=== PATIENT | male | born 1975 | race Caucasian/White ===

== ENCOUNTER → 2023-11-23 14:45 | Outpatient (REF) | payer BC, SELFPAY | LOC: DHCBS MAIN 14:45 | PROVIDERS: ATTENDING PHYSICIAN Internal Medicine Cardiovascular Disease | DX: I48.91 Unspecified atrial fibrillation (principal) | CPT/HCPCS: 93306 ==

== ENCOUNTER 2023-12-16 06:21 | Day surgery (SDC) | payer BC, SELFPAY ==
[2023-12-12 08:29] VITALS: BMI 26.7
[2023-12-12 08:51] LABS: % Basophils 0.9 % (0-2); % Eosinophils 3.1 % (0-6); % Immature Granulocytes 0.6 % (0-0.5); % Lymphocytes 29.7 % (20.5-51.1); % Monocytes 7.7 % (1.7-9.3); Absolute Basophils 0.1 10^3/uL (0-0.2); Absolute Eosinophils 0.2 10^3/uL (0-0.7); Absolute Monocytes 0.5 10^3/uL (0.1-0.6); Absolute Neutrophils 3.9 10^3/uL (1.4-6.5); Hematocrit 42.8 % (39.0-52.0); Hemoglobin 14.6 g/dL (13.0-18.0); Mean Corp Hgb Conc. 34.1 g/dL (33.0-37.0); Mean Corpuscular Hgb 31.7 pg (27.0-31.0); Mean Platelet Volume 9.9 fL (7.4-10.4); Nucleated Red Blood Cells % 0 % (-); Platelet Count 241 10^3/uL (130-400); Red Cell Dist. Width 11.6 % (11.5-14.5); White Blood Cell Count 6.8 10^3/uL (4.8-10.8)
[2023-12-12 09:06] LABS: INR 0.98; PT 12.8 Sec (11.4-14.6)
[2023-12-12 09:36] LABS: ALT (SGPT) 28 U/L (0-50); AST (SGOT) 29 U/L (17-59); Albumin 4.5 g/dl (3.5-5.0); Alkaline Phosphatase 91 U/L (38-126); Blood Urea Nitrogen 22 mg/dl (9-20); Calcium 9.9 mg/dl (8.4-10.2); Carbon Dioxide 31 mmol/L (22-30); Chloride 100 mmol/L (98-107); Estimated Creatinine Clearance 89 ml/min; Glucose 101 mg/dl (70-99); Potassium 4.4 mmol/L (3.5-5.1); Sodium 138 mmol/L (135-145); Total Bilirubin 0.7 mg/dl (0.2-1.3); Total Protein 7.6 g/dl (6.3-8.2); eGFR > 60.00
[2023-12-16] VITALS (7 sets, daily range): BP systolic 84–121; BP diastolic 45–77
[2023-12-16] MEDS: LOW STRENGTH ASPIRIN 324 MG PO (07:59)
--- NOTE | 2023-12-16 09:17 | ITS.CL.CATH ---
[employer] - Catheterization
Cardiac Catheterization
Procedure Report:
LEFT HEART CATHETERIZATION
Date of Procedure: December 16, 2023
Referring: Dr. Néstor Scott
PROCEDURES:
1. Left heart catheterization with coronary and single-plane left ventriculography
INDICATION: Atrial fibrillation with newly diagnosed LV dysfunction
ACCESS: Right radial artery, 6 Irish sheath
HEMODYNAMICS : (mmHg)
AO (s/d) : 99/74, 84
LV (s/d) : 99/12
LVEDP : 18
CORONARY FINDINGS
DOMINANCE: Right
LEFT MAIN: Normal
LEFT ANTERIOR DESCENDING: The LAD arises normally from the left main and runs in the anterior interventricular groove. The LAD is widely patent. 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
CIRCUMFLEX: The circumflex is a large and gives rise to a single sizable obtuse marginal branch that trifurcates distally
RIGHT CORONARY ARTERY: The right coronary artery is a dominant vessel that is widely patent over its course. The PDA and posterolateral branch are also noted to be widely
VENTRICULOGRAPHY: Left ventriculography was performed in ROCHA projection. The left ventricle is noted to be dilated and globally hypokinetic with a visually estimated ejection fraction of 25-30%
RADIATION SUMMARY: Fluoro Time (min): 2.2, Dose (mGy): 153, DAP (Gy.cm2) : 12.3
Closure Device: TR band
CONCLUSIONS
1. Normal coronary arteries
2. Dilated cardiomyopathy with visually estimated ejection fraction of 25-30%
RECOMMENDATIONS
1. Will add 25 mg Toprol XL in the evenings and will add low dose lisinopril vs Entresto
Copy to: Dr. Néstor Scott
--- NOTE | 2023-12-16 10:08 | CM ---
Recfeived consult to check co-apy for Entresto mcg bid. Telephone call to [employer], ([phone]) to check co-pay. His plan he pays 20 % of the cost of all medications. So for one month the cost would be $132.79 and for 90 day supply
it would be $362.36, He has commercial insurance so he can use the $10.00 co-pay card.
== END 2023-12-16 12:02 | disposition home or self-care (01) ==
LOC: CATH 06:21
PROVIDERS: ATTENDING PHYSICIAN Internal Medicine Interventional Cardiology; OTHER PHYSICIAN Internal Medicine Cardiovascular Disease
DX: I48.0 Paroxysmal atrial fibrillation (principal); I47.10 Supraventricular tachycardia, unspecified; I42.0 Dilated cardiomyopathy; Z79.01 Long term (current) use of anticoagulants; Z82.49 Family history of ischemic heart disease and other diseases of the circulatory system
CPT/HCPCS: 36415; 80053; 85025; 85610; 93005; 93458; C1894; Q9967

== ENCOUNTER 2024-01-20 06:56 | Day surgery (SDC) | payer BC, SELFPAY ==
[2024-01-20] MEDS: PACERONE 400 MG PO (08:43)
[2024-01-20 09:26] VITALS: BMI 25.6
--- NOTE | 2024-01-20 09:52 | ITS.CL.CARDI ---
Climate Change Risk Assessor - Cardioversion
Cardioversion
Procedure Report:
Procedure: Direct current electrical cardioversion
Pre-operative diagnosis: Persistent atrial fibrillation
Post-operative diagnosis: Persistent atrial fibrillation status post DC cardioversion to sinus rhythm
Anesthesia: MAC
Attending Physician: Memo Bobo MD
Procedure Description: The patient was brought to the electrophysiology laboratory in the fasting state. Adherence to anticoagulation regimen was confirmed. Informed consent was obtained from the patient prior to the start of the procedure.
Electrodes were placed on the patient and connected to an external defibrillator. Monitoring of blood pressure, ECG tracings, and pulse oximetry was initiated. The pads were applied to the patient in the anterior and posterior positions. The patient
was sedated by the anesthesiologist. A 200 joule biphasic synchronized shock was delivered to the patient under MAC anesthesia. Sinus rhythm was successfully restored. The patient recovered uneventfully from MAC anesthesia. There were no immediate
post-procedure complications. The patient left the lab in good condition. The attending physician was present throughout the entire procedure.
Following cardioversion the patient with salvos of nonsustained VT. Discussed with electrophysiology, plan to initiate amiodarone and monitor patient here postprocedure. Close electrophysiology follow-up has already been arranged.
Impression: Successful direct current cardioversion with cheondoism of sinus rhythm after one 200 joule biphasic synchronized shock.
== END 2024-01-20 10:40 | disposition home or self-care (01) ==
LOC: CATH 06:56
PROVIDERS: ATTENDING PHYSICIAN Internal Medicine Cardiovascular Disease; FAMILY PHYSICIAN Physician Assistant Medical; OTHER PHYSICIAN Internal Medicine Cardiovascular Disease
DX: I48.19 Other persistent atrial fibrillation (principal); I47.10 Supraventricular tachycardia, unspecified; Z82.49 Family history of ischemic heart disease and other diseases of the circulatory system; Z79.01 Long term (current) use of anticoagulants
CPT/HCPCS: 92960; 93005

== ENCOUNTER → 2024-01-27 14:41 | Outpatient (REF) | payer BC, SELFPAY | LOC: RAD 14:41 | PROVIDERS: ATTENDING PHYSICIAN Internal Medicine Cardiovascular Disease; FAMILY PHYSICIAN Physician Assistant Medical | DX: I42.8 Other cardiomyopathies (principal) | CPT/HCPCS: 71046 ==

== ENCOUNTER → 2024-02-24 08:40 | Outpatient (REF) | payer BC, SELFPAY | LOC: MRI 08:40 | PROVIDERS: ATTENDING PHYSICIAN Internal Medicine Cardiovascular Disease; FAMILY PHYSICIAN Physician Assistant Medical | DX: I42.8 Other cardiomyopathies (principal) | CPT/HCPCS: 75561; 75565; A9585 ==

== ENCOUNTER → 2024-04-04 12:00 | Outpatient (REF) | payer BC, SELFPAY | LOC: DHSLP 12:00 | PROVIDERS: ATTENDING PHYSICIAN Internal Medicine Cardiovascular Disease; FAMILY PHYSICIAN Physician Assistant Medical | DX: G47.33 Obstructive sleep apnea (adult) (pediatric) (principal) | CPT/HCPCS: 95800 ==

== ENCOUNTER 2024-04-17 08:53 | Day surgery (SDC) | payer BC, SELFPAY ==
[2024-04-06 13:01] VITALS: BMI 26.2
[2024-04-06 13:32] LABS: % Basophils 0.9 % (0-2); % Eosinophils 1.9 % (0-6); % Immature Granulocytes 0.5 % (0-0.5); % Lymphocytes 27.3 % (20.5-51.1); % Monocytes 7.9 % (1.7-9.3); % Neutrophils 61.5 % (42.2-75.2); Absolute Basophils 0.1 10^3/uL (0-0.2); Absolute Eosinophils 0.1 10^3/uL (0-0.7); Absolute Lymphocytes 1.8 10^3/uL (1.2-3.4); Absolute Monocytes 0.5 10^3/uL (0.1-0.6); Mean Corp Hgb Conc. 35.7 g/dL (33.0-37.0); Mean Corpuscular Hgb 32.1 pg (27.0-31.0); Mean Corpuscular Volume 89.9 fL (80.0-94.0); Mean Platelet Volume 10.1 fL (7.4-10.4); Nucleated Red Blood Cells % 0 % (-); Platelet Count 221 10^3/uL (130-400); Red Blood Cell Count 4.67 10^6/uL (4.70-6.10); Red Cell Dist. Width 11.9 % (11.5-14.5); White Blood Cell Count 6.4 10^3/uL (4.8-10.8)
[2024-04-06 13:36] LABS: INR 1.15; PT 14.5 Sec (11.4-14.6)
[2024-04-06 13:48] LABS: ALT (SGPT) 157 U/L (0-50); AST (SGOT) 61 U/L (17-59); Albumin 4.8 g/dl (3.5-5.0); Alkaline Phosphatase 80 U/L (38-126); Blood Urea Nitrogen 25 mg/dl (9-20); Calcium 10.1 mg/dl (8.4-10.2); Carbon Dioxide 29 mmol/L (22-30); Chloride 100 mmol/L (98-107); Estimated Creatinine Clearance 75 ml/min; Glucose 97 mg/dl (70-99); Magnesium 2.1 mg/dl (1.6-2.3); Potassium 4.9 mmol/L (3.5-5.1); Sodium 134 mmol/L (135-145); Total Protein 7.8 g/dl (6.3-8.2); eGFR > 60.00
[2024-04-17] VITALS (11 sets, daily range): BP systolic 92–132; BP diastolic 46–86; BMI 26.2
[2024-04-17 11:49] LABS: ACT-LR - POC 216 Seconds (116-155)
[2024-04-17 12:01] LABS: ACT-LR - POC 368 Seconds (116-155)
[2024-04-17 12:17] LABS: ACT-LR - POC 397 Seconds (116-155)
[2024-04-17 13:23] LABS: ACT-LR - POC 203 Seconds (116-155)
--- NOTE | 2024-04-17 14:06 | ITS.CL.ABL ---
[employer]asting Supervisor - Ablation
Ablation
Procedure Report:
Primary Care: Rolando Ramirez PA-C
Procedure Date: 04/17/2024
Patient History:
Patient is a pleasant 49 year old male with a past medical history significant for NICM, paroxysmal SVT s/p EPS RFA for left lateral pathway 2008, and mildly symptomatic persistent AF.
See H&P for complete details.
Indication:
Persistent atrial fibrillation
Non-ischemic cardiomyopathy with heart failure with reduced ejection fraction
Early recurrence following cardioversion
Arrhythmia Specific History:
Prior Medical Therapies for Rate and Rhythm Control:
X Beta-kirit
[ ] Calcium channel-kirti
X Amiodarone
[ ] Dronederone
[ ] Sotalol
X Flecainide
[ ] Dofetilide
[ ] Options limited by bradycardia
[ ] Options limited by comorbid renal disease
Prior Procedural Therapies for AF/AFL:
X Cardioversion
[ ] Pulmonary Vein Isolation
[ ] Posterior Wall Isolation
[ ] Additional lines (Specify)
[ ] Surgical Emanuel-MAZE or PVI (Specify)
Procedure Performed:
X AF ablation procedure (72154) -- includes LA/CS pacing, trans-septal, 3D mapping, + ICE
[ ] +IV drug (61218)
[ ] +Other Arrhythmia (06720)
X +Other AF Line/ablation (93758) -- posterior wall isolation
Risks and expected recovery has been explained in detail. Alternative options have been explored, and in a shared-decision making fashion we have decided that this was the most appropriate procedure.
Method
NPO status confirmed. Grounding pad applied. Defibrillator pads applied. Continuous surface ECG, pulse oximetry, and blood pressure were monitored. Procedure was performed under general anesthesia, with anesthesia services.
Both groins were clipped, prepped with Chloraprep, and draped in sterile fashion. Time out was called. Local anesthesia administered with bupivacaine. The right and left femoral veins were accessed for catheter placement, using ultrasound guidance,
micro-puncture needle/wire, and modified seldinger technique. 3 sheaths were placed. The following catheters were used:
[ ] Tacticath SE (D/F Curve) ablation catheter
X Viewflex 9Fr ICE catheter
X Inquiry decapolar 6Fr diagnostic catheter
[ ] CRD Hex 6Fr
[ ] Arctic Front Advance Cryoballoon ([ ]28mm[ ]23mm)
[ ] Achieve Advance mapping catheter ([ ]15mm[ ]20mm)
X FlexCath Contour 10 Fr with PulseSelect PFA Catheter
X Advisor HD Grid Mapping Catheter, SE
[ ] AcusBlue Rooster AcuNav 8 Fr ICE catheter
[ ]Other: [ ]
Intracardiac ultrasound (ICE) was carefully advanced into the right atrium to guide sheath placement over a J-wire, catheter placement, guide trans-septal puncture, identify potential complications, identify anatomic structures and ensure proper
contact between ablation catheter and tissue.
Heparin was given prior to trans-septal puncture. Heparin was given to achieve and maintain a target ACT of 300-400 seconds throughout the procedure.
Trans-septal access was performed under ICE guidance. The trans-septal puncture was performed with a SafeSept wire through a Brockenbrough needle assembly through the steerable sheath. The wire was visualized as it entered the LSPV and system
advanced under ICE guidance and fluoroscopy into the LA. The Brockenbrough needle assembly, SafeSept wire and sheath dilator were removed under negative pressure. LA pressure was measured and recorded.
ICE and 3D mapping was performed to identify relevant cardiac structures. A careful 3D map was created to assess for regions of low-voltage and abnormal electrogram signals using HD grid mapping catheter and PulseSelect catheter. Additional mapping
was performed as outlined below.
Prior to ablation, glycopyrrolate was provided. PulseSelect catheter was advanced over J-wire to the ostium of each vein. Pulmonary vein isolation was performed with ostial and antral lesions in a circumferential manner. Contact was visualized via
EAM, ICE, fluoroscopy, and EGM signals. Posterior wall isolation was performed by anchoring the J-wire within the pulmonary vein and placing the PulseSelect catheter in contact with the posterior wall as visualized by aforementioned methods.
Following completion of ablation lesions, a post-ablation voltage/activation map was performed in sinus rhythm. Entrance and exit block were confirmed for each vein and the posterior wall.
Catheter and sheath were removed from the left atrium and post-ablation intracardiac echo evaluation was consistent with pre-ablation with no changes and no pericardial effusion and there is no left atrial thrombus or left ventricle thrombus seen.
Electrophysiology study was performed. Hemostasis was obtained with Vascade for each sheath and with manual pressure. Protamine was used for reversal.
Estimated Blood Loss
5 mL
Complications
None
Fluoroscopy: 4.8 minutes; 12.5 mGy; DAP 1.53
Baseline Intervals:
Rhythm: SR
MO: 166 ms
QRS: 118 ms
QT: 504 ms
Post-Procedure Intervals:
MO: 167 ms
QRS: 103 ms
QT: 462 ms
AVWB: 450 ms
AVNERP: 600/370 ms
Recommendations
- Bedrest with straight-leg precautions as ordered
- Anticipate same day discharge if patient meeting clinical metrics
- Resume home medications as indicated
- Ok to resume anticoagulation tonight if patient and groin sites stable
- PPI daily for 30 days
- Plan for follow-up in office
- Decrease amiodarone to 200 mg daily
- 2D echocardiogram to reassess cardiac function while maintaining sinus rhythm prior to office visit
Néstor Scott DO
Clinical Cardiac Foreman/[employer]
cc: Rolando Ramirez PA-C
--- NOTE | 2024-04-17 15:33 | W.PN.UPDATE ---
Update Note
Progress Note Update
49 yo WM s/p PVI (same day). He feels good, no cp, sob, hallie diet, EKG SR, R fem site c/d/i VASCADE closure. He will continue OAC Eliquis dose at 730pm at home. He will decrease Amiodarone to 200mg daily, will add PPI for 30 days and continue
metoprolol xl 25 bid. Activity restrictions reviewed. He will f/u DCA in 3 mo. He is for d/c home after 430p if groin stable and able to void.
[2024-04-18 12:01] LABS: ACT-LR - POC > 397 Seconds (116-155)
[2024-04-18 12:04] LABS: ACT-LR - POC > 397 Seconds (116-155)
[2024-04-18 12:04] LABS: ACT-LR - POC > 397 Seconds (116-155)
== END 2024-04-17 16:40 | disposition home or self-care (01) ==
LOC: CATH 08:53
PROVIDERS: ATTENDING PHYSICIAN Internal Medicine Cardiovascular Disease; FAMILY PHYSICIAN Physician Assistant Medical
DX: I48.19 Other persistent atrial fibrillation (principal); Z79.01 Long term (current) use of anticoagulants; Z79.899 Other long term (current) drug therapy; I42.0 Dilated cardiomyopathy; I47.20 Ventricular tachycardia, unspecified; Z82.49 Family history of ischemic heart disease and other diseases of the circulatory system; I11.0 Hypertensive heart disease with heart failure; I50.22 Chronic systolic (congestive) heart failure
CPT/HCPCS: C1732; C1760; C1894; C1733; C1769; 36415; 75572; 76937; 80053; 83735; 85025; 85347; 85610; 86850; 86900; 86901; 93005; 93656; 93657; Q9967

== ENCOUNTER → 2024-05-09 16:43 | Outpatient (REF) | payer BC, SELFPAY | LOC: RCS 16:43 | PROVIDERS: ATTENDING PHYSICIAN Internal Medicine Cardiovascular Disease; FAMILY PHYSICIAN Orthopaedic Surgery | DX: I42.8 Other cardiomyopathies (principal) | CPT/HCPCS: 93306 ==

== ENCOUNTER → 2024-06-20 06:43 | Outpatient (REF) | payer BC, SELFPAY | LOC: HWRAD 06:43 | PROVIDERS: ATTENDING PHYSICIAN Internal Medicine; FAMILY PHYSICIAN Physician Assistant Medical | DX: R74.8 Abnormal levels of other serum enzymes (principal) | CPT/HCPCS: 76700; 93975 ==

== ENCOUNTER 2024-07-23 06:46 | Day surgery (SDC) | payer BC, SELFPAY | END 2024-07-23 08:52 | disposition home or self-care (01) | LOC: GI 06:46 | PROVIDERS: ATTENDING PHYSICIAN Internal Medicine | DX: Z12.11 Encounter for screening for malignant neoplasm of colon (principal) | CPT/HCPCS: G0121 ==

== ENCOUNTER → 2024-12-19 06:58 | Outpatient (REF) | payer BC, SELFPAY | LOC: RCS 06:58 | PROVIDERS: ATTENDING PHYSICIAN Internal Medicine Cardiovascular Disease; FAMILY PHYSICIAN Physician Assistant Medical | DX: I48.91 Unspecified atrial fibrillation (principal); I42.8 Other cardiomyopathies | CPT/HCPCS: 93306 ==